=== PATIENT | female | born 1990 | race Caucasian/White ===

== ENCOUNTER 2016-12-10 14:14 | Emergency (ER) | payer OTHER, BC ==
[~2016-12-10] VITALS: Ht 170.2 cm; Wt 110.0 kg
[2016-12-10 14:16] VITALS: BP 163/73; PULSE 77; RESP 18; TEMP 98.2; O2SAT 99
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
[2016-12-10] MEDS ORDERED: IBUP800T23 PO (14:59)
[2016-12-10] MEDS ORDERED: ROBA500T PO (14:59)
[2016-12-10] MEDS ORDERED: IBUPROFEN 800 MG TAB PO ONE (15:00)
== END 2016-12-10 16:23 | disposition home or self-care (01) ==
LOC: NEPK 14:14
DX: S16.1XXA Strain of muscle, fascia and tendon at neck level, initial encounter (principal); S46.812A Strain of other muscles, fascia and tendons at shoulder and upper arm level, left arm, initial encounter; S39.012A Strain of muscle, fascia and tendon of lower back, initial encounter; V49.50XA Passenger injured in collision with unspecified motor vehicles in traffic accident, initial encounter
CPT/HCPCS: 99283; L0150